=== PATIENT | male | born 1975 | race Two or more races ===

== ENCOUNTER 2024-03-16 12:47 | Emergency (ER) | payer OTHER ==
[~2024-03-16] VITALS: Ht 167.6 cm; Wt 100.0 kg
[2024-03-16 13:06] VITALS: TEMP 98
[2024-03-16] MEDS: KETOROLAC TROMETHAMINE 30 MG/ML VIAL IM ONE (14:29)
[2024-03-16] MEDS: LIDOCAINE 5% TRANSDERMAL PATCH TD ONE (14:30)
[2024-03-16 14:37] VITALS: BP 145/89; PULSE 71; RESP 18
[2024-03-16] MEDS ORDERED: IBUP-1492 PO (15:34)
== END 2024-03-16 15:45 | disposition home or self-care (01) ==
LOC: EMS 12:47
DX: M54.50 Low back pain, unspecified (principal); F17.210 Nicotine dependence, cigarettes, uncomplicated
CPT/HCPCS: 99283; 96372; J1885